=== PATIENT | male | born 1950 | race Two or more races ===

== ENCOUNTER 2016-10-23 10:59 | Outpatient (CLI) | payer MEDICARE | END 2016-10-23 23:59 | disposition home or self-care (01) | LOC: WOU 10:59 | PROVIDERS: ATTEND Surgery | DX: L89.154 Pressure ulcer of sacral region, stage 4 (principal); L89.314 Pressure ulcer of right buttock, stage 4; G82.21 Paraplegia, complete; Z93.3 Colostomy status; Z87.891 Personal history of nicotine dependence; Z88.0 Allergy status to penicillin | CPT/HCPCS: 11043; 11044; 11046; 11047; A6253; A6402 ==

== ENCOUNTER 2016-10-30 11:15 | Outpatient (CLI) | payer MEDICARE | END 2016-10-30 23:59 | disposition home or self-care (01) | LOC: WOU 11:15 | PROVIDERS: ATTEND Surgery | DX: L89.154 Pressure ulcer of sacral region, stage 4 (principal); L89.314 Pressure ulcer of right buttock, stage 4; G82.21 Paraplegia, complete; Z79.3 Long term (current) use of hormonal contraceptives; Z87.891 Personal history of nicotine dependence; Z88.0 Allergy status to penicillin; E46 Unspecified protein-calorie malnutrition; Z68.28 Body mass index [BMI] 28.0-28.9, adult | CPT/HCPCS: 11043; 11044; 11046; 11047; A6253; A6402 ×2 ==

== ENCOUNTER 2016-11-06 11:39 | Outpatient (CLI) | payer MEDICARE ==
[2016-11-06 13:03] LABS: NEUTROPHILS # (AUTO) 21.3 /CMM (1.8-8.9)
[2016-11-06 13:04] LABS: PREALBUMIN 8.4 MG/DL (18.0-35.7)
[2016-11-06 13:06] LABS: DIFF TOTAL % 100 %; EOSINOPHILS % (AUTO) 0.2 % (0.0-6.0); HEMATOCRIT 21 % (39-51); LYMPHOCYTES # (AUTO) 1.1 /CMM (0.8-4.8); LYMPHOCYTES % (AUTO) 4.8 % (20.0-44.0); MEAN CORPUSCULAR HEMOGLOBIN 22 PG (26.0-33.0); MEAN CORPUSCULAR HGB CONC 31 g/dl (31.0-36.0); MEAN CORPUSCULAR VOLUME 72 fL (80-96); MONOCYTES % (AUTO) 4.1 % (2.0-12.0); NEUTROPHILS % (AUTO) 90.9 % (43.0-81.0); PLATELET COUNT (AUTO) 533 /CMM (150-450); WHITE BLOOD COUNT (AUTO) 23.5 K/uL (4.3-11.0)
[2016-11-06 13:08] LABS: BILIRUBIN,TOTAL 0.2 mg/dL (0.2-1.0); CREATININE 0.8 mg/dL (0.6-1.3); POTASSIUM 4.2 mmol/L (3.5-5.1)
[2016-11-06 13:13] LABS: ALBUMIN 1.2 g/dL (3.4-5.0); HEMOGLOBIN 6.4 g/dL (13.5-17.5)
[2016-11-06 14:46] LABS: LYMPHOCYTES % (MANUAL) 4 % (16-48); PLATELET ESTIMATE INCREASED
[2016-11-06 14:47] LABS: ANISOCYTOSIS 3+; HYPOCHROMASIA 1+; MICROCYTOSIS 1+
[2016-11-06 17:06] LABS: KETONES,URINE TRACE (NEGATIVE); LEUKOCYTE ESTERASE ,URINE 3+ (NEGATIVE)
[2016-11-06 17:23] LABS: ADD UA MICROSCOPIC YES
[2016-11-06 17:32] LABS: ADD URINE CULTURE YES
== END 2016-11-06 23:59 | disposition home or self-care (01) ==
LOC: WOU 11:39
PROVIDERS: ATTEND Surgery
DX: L89.154 Pressure ulcer of sacral region, stage 4 (principal); L89.314 Pressure ulcer of right buttock, stage 4; Z87.891 Personal history of nicotine dependence; E46 Unspecified protein-calorie malnutrition; Z68.28 Body mass index [BMI] 28.0-28.9, adult; Z93.3 Colostomy status; R15.9 Full incontinence of feces; G82.21 Paraplegia, complete; I96 Gangrene, not elsewhere classified
CPT/HCPCS: 11043; 11044; 11046; 11047; 36415; 80053; 81001; 84134; 85025; 87077; 87086; 87186 ×2; A6253; A6402 ×2; 81000-TC

== ENCOUNTER 2016-11-13 11:41 | Outpatient (CLI) | payer MEDICARE | END 2016-11-13 23:59 | disposition home or self-care (01) | LOC: WOU 11:41 | PROVIDERS: ATTEND Surgery | DX: L89.154 Pressure ulcer of sacral region, stage 4 (principal); L89.314 Pressure ulcer of right buttock, stage 4; G82.21 Paraplegia, complete; Z93.3 Colostomy status; Z87.891 Personal history of nicotine dependence; E46 Unspecified protein-calorie malnutrition | CPT/HCPCS: 11043; 11044; 11046; 11047; A6253; A6402 ==

== ENCOUNTER 2016-11-27 11:36 | Outpatient (CLI) | payer MEDICARE | END 2016-11-27 23:59 | disposition home or self-care (01) | LOC: WOU 11:36 | PROVIDERS: ATTEND Surgery | DX: L89.154 Pressure ulcer of sacral region, stage 4 (principal); L89.314 Pressure ulcer of right buttock, stage 4; G82.21 Paraplegia, complete; Z93.3 Colostomy status; Z87.891 Personal history of nicotine dependence; Z88.0 Allergy status to penicillin; R15.9 Full incontinence of feces; E46 Unspecified protein-calorie malnutrition; Z68.28 Body mass index [BMI] 28.0-28.9, adult | CPT/HCPCS: 11043; 11044; 11046; 11047; A6253 ×2; A6402 ×2 ==

== ENCOUNTER 2016-12-04 11:30 | Outpatient (CLI) | payer MEDICARE | END 2016-12-04 23:59 | disposition home or self-care (01) | LOC: WOU 11:30 | PROVIDERS: ATTEND Surgery | DX: L89.154 Pressure ulcer of sacral region, stage 4 (principal); L89.314 Pressure ulcer of right buttock, stage 4; G82.21 Paraplegia, complete; Z93.3 Colostomy status; Z87.891 Personal history of nicotine dependence; Z88.0 Allergy status to penicillin; R15.9 Full incontinence of feces; E46 Unspecified protein-calorie malnutrition; Z68.28 Body mass index [BMI] 28.0-28.9, adult | CPT/HCPCS: 11043; 11044; 11046; 11047; A6253; A6402 ==

== ENCOUNTER 2016-12-11 11:27 | Outpatient (CLI) | payer MEDICARE | END 2016-12-11 23:59 | disposition home or self-care (01) | LOC: WOU 11:27 | PROVIDERS: ATTEND Surgery | DX: L89.154 Pressure ulcer of sacral region, stage 4 (principal); L89.314 Pressure ulcer of right buttock, stage 4; G82.21 Paraplegia, complete; Z93.3 Colostomy status; Z87.891 Personal history of nicotine dependence; Z88.0 Allergy status to penicillin; E46 Unspecified protein-calorie malnutrition; Z68.28 Body mass index [BMI] 28.0-28.9, adult | CPT/HCPCS: 11043; 11044; 11046; 11047; A6253; A6402 ×2 ==

== ENCOUNTER 2016-12-18 11:30 | Outpatient (CLI) | payer MEDICARE | END 2016-12-18 23:59 | disposition home or self-care (01) | LOC: WOU 11:30 | PROVIDERS: ATTEND Surgery | DX: L89.154 Pressure ulcer of sacral region, stage 4 (principal); L89.314 Pressure ulcer of right buttock, stage 4; G82.21 Paraplegia, complete; Z93.3 Colostomy status; E46 Unspecified protein-calorie malnutrition; Z87.891 Personal history of nicotine dependence | CPT/HCPCS: 11043; 11044; 11046; 11047; A6253; A6402 ==

== ENCOUNTER 2017-01-01 11:58 | Outpatient (CLI) | payer MEDICARE | END 2017-01-01 23:59 | disposition home or self-care (01) | LOC: WOU 11:58 | PROVIDERS: ATTEND Surgery | DX: L89.154 Pressure ulcer of sacral region, stage 4 (principal); L89.314 Pressure ulcer of right buttock, stage 4; G82.21 Paraplegia, complete; Z87.891 Personal history of nicotine dependence; Z93.3 Colostomy status; E46 Unspecified protein-calorie malnutrition; Z68.28 Body mass index [BMI] 28.0-28.9, adult | CPT/HCPCS: 11043; A6253; A6402 ==

== ENCOUNTER 2017-01-15 12:48 | Outpatient (CLI) | payer MEDICARE | END 2017-01-15 23:59 | disposition home or self-care (01) | LOC: WOU 12:48 | PROVIDERS: ATTEND Surgery | DX: L89.154 Pressure ulcer of sacral region, stage 4 (principal); L89.314 Pressure ulcer of right buttock, stage 4; G82.21 Paraplegia, complete; E46 Unspecified protein-calorie malnutrition; Z68.28 Body mass index [BMI] 28.0-28.9, adult; Z93.3 Colostomy status; Z87.891 Personal history of nicotine dependence | CPT/HCPCS: 11043; 11044; 11046; 11047; A6253; A6402 ==

== ENCOUNTER 2017-01-22 12:55 | Outpatient (CLI) | payer MEDICARE | END 2017-01-22 23:59 | disposition home or self-care (01) | LOC: WOU 12:55 | PROVIDERS: ATTEND Surgery | DX: L89.154 Pressure ulcer of sacral region, stage 4 (principal); L89.314 Pressure ulcer of right buttock, stage 4; G82.21 Paraplegia, complete; E46 Unspecified protein-calorie malnutrition; Z68.28 Body mass index [BMI] 28.0-28.9, adult; Z99.3 Dependence on wheelchair; Z93.3 Colostomy status; Z87.891 Personal history of nicotine dependence | CPT/HCPCS: 11043; 11044; 11046; 11047; A6253 ×2; A6402 ==

== ENCOUNTER 2017-01-29 11:16 | Outpatient (CLI) | payer MEDICARE | END 2017-01-29 23:59 | disposition home or self-care (01) | LOC: WOU 11:16 | PROVIDERS: ATTEND Surgery | DX: L89.154 Pressure ulcer of sacral region, stage 4 (principal); L89.314 Pressure ulcer of right buttock, stage 4; G82.21 Paraplegia, complete; Z93.3 Colostomy status; Z87.891 Personal history of nicotine dependence; Z88.0 Allergy status to penicillin; E46 Unspecified protein-calorie malnutrition; Z68.28 Body mass index [BMI] 28.0-28.9, adult | CPT/HCPCS: 11043; 11044; 11047; A6253; A6402 ==

== ENCOUNTER 2017-02-05 11:10 | Outpatient (CLI) | payer MEDICARE | END 2017-02-05 23:59 | disposition home or self-care (01) | LOC: WOU 11:10 | PROVIDERS: ATTEND Surgery | DX: L89.154 Pressure ulcer of sacral region, stage 4 (principal); L89.314 Pressure ulcer of right buttock, stage 4; G82.20 Paraplegia, unspecified; Z93.3 Colostomy status; Z87.891 Personal history of nicotine dependence | CPT/HCPCS: 11043; 11044; 11046; 11047; A6253; A6402 ==

== ENCOUNTER 2017-02-12 11:15 | Outpatient (CLI) | payer MEDICARE | END 2017-02-12 23:59 | disposition home or self-care (01) | LOC: WOU 11:15 | PROVIDERS: ATTEND Surgery | DX: L89.154 Pressure ulcer of sacral region, stage 4 (principal); L89.314 Pressure ulcer of right buttock, stage 4; G82.21 Paraplegia, complete; Z93.3 Colostomy status; Z87.891 Personal history of nicotine dependence; E46 Unspecified protein-calorie malnutrition; Z68.28 Body mass index [BMI] 28.0-28.9, adult | CPT/HCPCS: 11043; 11046; A6253; A6402 ==

== ENCOUNTER 2017-02-26 13:25 | Outpatient (CLI) | payer MEDICARE | END 2017-02-26 23:59 | disposition home or self-care (01) | LOC: WOU 13:25 | PROVIDERS: ATTEND Surgery | DX: L89.154 Pressure ulcer of sacral region, stage 4 (principal); L89.314 Pressure ulcer of right buttock, stage 4; G82.21 Paraplegia, complete; Z93.3 Colostomy status; Z87.891 Personal history of nicotine dependence; E46 Unspecified protein-calorie malnutrition; Z68.28 Body mass index [BMI] 28.0-28.9, adult; Z99.3 Dependence on wheelchair | CPT/HCPCS: 11043; 11046; A6253; A6402 ==

== ENCOUNTER 2017-03-05 12:28 | Outpatient (CLI) | payer MEDICARE | END 2017-03-05 23:59 | disposition home or self-care (01) | LOC: WOU 12:28 | PROVIDERS: ATTEND Surgery | DX: L89.154 Pressure ulcer of sacral region, stage 4 (principal); L89.314 Pressure ulcer of right buttock, stage 4; G82.21 Paraplegia, complete; Z93.3 Colostomy status; Z87.891 Personal history of nicotine dependence | CPT/HCPCS: 11043; 11046; A6253; A6402 ==

== ENCOUNTER 2017-03-19 12:50 | Outpatient (CLI) | payer MEDICARE | END 2017-03-19 23:59 | disposition home or self-care (01) | LOC: WOU 12:50 | PROVIDERS: ATTEND Surgery | DX: L89.154 Pressure ulcer of sacral region, stage 4 (principal); L89.314 Pressure ulcer of right buttock, stage 4; G82.21 Paraplegia, complete; Z93.3 Colostomy status; Z87.891 Personal history of nicotine dependence | CPT/HCPCS: 11043; 11046; A6253; A6402 ==

== ENCOUNTER 2017-03-26 13:00 | Outpatient (CLI) | payer MEDICARE | END 2017-03-26 23:59 | disposition home or self-care (01) | LOC: WOU 13:00 | PROVIDERS: ATTEND Surgery | DX: L89.154 Pressure ulcer of sacral region, stage 4 (principal); L89.314 Pressure ulcer of right buttock, stage 4; G82.21 Paraplegia, complete; Z93.3 Colostomy status; Z87.891 Personal history of nicotine dependence; Z88.0 Allergy status to penicillin; E46 Unspecified protein-calorie malnutrition; Z68.28 Body mass index [BMI] 28.0-28.9, adult | CPT/HCPCS: 11043; A6253; A6402 ==

== ENCOUNTER 2017-04-02 11:30 | Outpatient (CLI) | payer MEDICARE | END 2017-04-02 23:59 | disposition home or self-care (01) | LOC: WOU 11:30 | PROVIDERS: ATTEND Surgery | DX: L89.154 Pressure ulcer of sacral region, stage 4 (principal); L89.314 Pressure ulcer of right buttock, stage 4; G82.21 Paraplegia, complete; Z93.3 Colostomy status; Z87.891 Personal history of nicotine dependence; Z88.0 Allergy status to penicillin; E46 Unspecified protein-calorie malnutrition; Z68.28 Body mass index [BMI] 28.0-28.9, adult; R15.9 Full incontinence of feces | CPT/HCPCS: 11043; 11046; A6253; A6402 ==

== ENCOUNTER 2017-04-09 11:45 | Outpatient (CLI) | payer MEDICARE | END 2017-04-09 23:59 | disposition home or self-care (01) | LOC: WOU 11:45 | PROVIDERS: ATTEND Surgery | DX: L89.154 Pressure ulcer of sacral region, stage 4 (principal); L89.314 Pressure ulcer of right buttock, stage 4; G82.21 Paraplegia, complete; Z93.3 Colostomy status; Z87.891 Personal history of nicotine dependence; Z88.0 Allergy status to penicillin; E46 Unspecified protein-calorie malnutrition; Z68.28 Body mass index [BMI] 28.0-28.9, adult | CPT/HCPCS: 11043; A6253; A6402 ==

== ENCOUNTER 2017-04-23 13:32 | Outpatient (CLI) | payer MEDICARE | END 2017-04-23 23:59 | disposition home or self-care (01) | LOC: WOU 13:32 | PROVIDERS: ATTEND Surgery | DX: L89.314 Pressure ulcer of right buttock, stage 4 (principal); L89.154 Pressure ulcer of sacral region, stage 4; Z93.3 Colostomy status; Z87.891 Personal history of nicotine dependence; Z88.0 Allergy status to penicillin; E46 Unspecified protein-calorie malnutrition; Z68.28 Body mass index [BMI] 28.0-28.9, adult; G82.20 Paraplegia, unspecified; G82.21 Paraplegia, complete | CPT/HCPCS: 11043; A6253; A6402 ==

== ENCOUNTER 2017-04-30 11:05 | Outpatient (CLI) | payer MEDICARE | END 2017-04-30 23:59 | disposition home or self-care (01) | LOC: WOU 11:05 | PROVIDERS: ATTEND Surgery | DX: L89.154 Pressure ulcer of sacral region, stage 4 (principal); L89.314 Pressure ulcer of right buttock, stage 4; G82.21 Paraplegia, complete; Z99.3 Dependence on wheelchair; Z93.3 Colostomy status; Z87.891 Personal history of nicotine dependence; E46 Unspecified protein-calorie malnutrition; Z68.28 Body mass index [BMI] 28.0-28.9, adult | CPT/HCPCS: 11043; A6253; A6402 ==

== ENCOUNTER 2017-05-07 11:15 | Outpatient (CLI) | payer MEDICARE | END 2017-05-07 23:59 | disposition home or self-care (01) | LOC: WOU 11:15 | PROVIDERS: ATTEND Surgery | DX: L89.154 Pressure ulcer of sacral region, stage 4 (principal); L89.314 Pressure ulcer of right buttock, stage 4; G82.21 Paraplegia, complete; Z93.3 Colostomy status; R15.9 Full incontinence of feces; Z87.891 Personal history of nicotine dependence; Z99.3 Dependence on wheelchair; Z88.0 Allergy status to penicillin | CPT/HCPCS: 11043; 11046; A6253; A6402 ×2 ==

== ENCOUNTER 2017-05-14 11:10 | Outpatient (CLI) | payer MEDICARE | END 2017-05-14 23:59 | disposition home or self-care (01) | LOC: WOU 11:10 | PROVIDERS: ATTEND Surgery | DX: L89.154 Pressure ulcer of sacral region, stage 4 (principal); L89.314 Pressure ulcer of right buttock, stage 4; G82.21 Paraplegia, complete; Z93.3 Colostomy status; R15.9 Full incontinence of feces; Z87.891 Personal history of nicotine dependence; Z99.3 Dependence on wheelchair; Z88.0 Allergy status to penicillin; E46 Unspecified protein-calorie malnutrition; Z68.28 Body mass index [BMI] 28.0-28.9, adult | CPT/HCPCS: 11043; A6253; A6402 ==

== ENCOUNTER 2017-05-28 11:12 | Outpatient (CLI) | payer MEDICARE | END 2017-05-28 23:59 | disposition home or self-care (01) | LOC: WOU 11:12 | PROVIDERS: ATTEND Surgery | DX: L89.154 Pressure ulcer of sacral region, stage 4 (principal); L89.314 Pressure ulcer of right buttock, stage 4; G82.21 Paraplegia, complete; Z93.3 Colostomy status; R15.9 Full incontinence of feces; Z87.891 Personal history of nicotine dependence; Z99.3 Dependence on wheelchair; Z88.0 Allergy status to penicillin; E46 Unspecified protein-calorie malnutrition; Z68.28 Body mass index [BMI] 28.0-28.9, adult | CPT/HCPCS: 11043; A6253; A6402 ==

== ENCOUNTER 2017-06-04 12:23 | Outpatient (CLI) | payer MEDICARE | END 2017-06-04 23:59 | disposition home or self-care (01) | LOC: WOU 12:23 | PROVIDERS: ATTEND Surgery | DX: L89.154 Pressure ulcer of sacral region, stage 4 (principal); L89.314 Pressure ulcer of right buttock, stage 4; G82.21 Paraplegia, complete; Z93.3 Colostomy status; R15.9 Full incontinence of feces; Z87.891 Personal history of nicotine dependence; Z99.3 Dependence on wheelchair; Z88.0 Allergy status to penicillin; E46 Unspecified protein-calorie malnutrition; Z68.28 Body mass index [BMI] 28.0-28.9, adult | CPT/HCPCS: 11043; 11046; A6253; A6402 ==

== ENCOUNTER 2017-06-11 13:10 | Outpatient (CLI) | payer MEDICARE | END 2017-06-11 23:59 | disposition home or self-care (01) | LOC: WOU 13:10 | PROVIDERS: ATTEND Surgery | DX: L89.154 Pressure ulcer of sacral region, stage 4 (principal); L89.314 Pressure ulcer of right buttock, stage 4; G82.21 Paraplegia, complete; Z93.3 Colostomy status; R15.9 Full incontinence of feces; Z87.891 Personal history of nicotine dependence; Z99.3 Dependence on wheelchair; Z88.0 Allergy status to penicillin; E46 Unspecified protein-calorie malnutrition; Z68.28 Body mass index [BMI] 28.0-28.9, adult; Z87.440 Personal history of urinary (tract) infections | CPT/HCPCS: 11043; 11046; A6253; A6402 ==

== ENCOUNTER 2017-07-02 12:50 | Outpatient (CLI) | payer MEDICARE ==
[2017-07-02 14:46] LABS: BASOPHILS % (AUTO) 0.2 % (0.0-2.0); EOSINOPHILS # (AUTO) 0.1 /CMM (0.0-0.7); EOSINOPHILS % (AUTO) 0.4 % (0.0-6.0); HEMATOCRIT 27 % (39-51); HEMOGLOBIN 8.1 g/dL (13.5-17.5); LYMPHOCYTES % (AUTO) 6.8 % (20.0-44.0); MEAN CORPUSCULAR HEMOGLOBIN 22 PG (26.0-33.0); MEAN CORPUSCULAR HGB CONC 30 g/dl (31.0-36.0); MEAN CORPUSCULAR VOLUME 74 fL (80-96); MONOCYTES # (AUTO) 0.8 /CMM (0.1-1.30); MONOCYTES % (AUTO) 5.7 % (2.0-12.0); NEUTROPHILS # (AUTO) 12.6 /CMM (1.8-8.9); NEUTROPHILS % (AUTO) 86.9 % (43.0-81.0); PLATELET COUNT (AUTO) 743 /CMM (150-450); RDW COEFFICIENT OF VARIATION 21.8 (11.5-15.0); RED BLOOD CELL COUNT(AUTO) 3.61 MIL/uL (4.5-6.0); WHITE BLOOD COUNT (AUTO) 14.5 K/uL (4.3-11.0)
[2017-07-02 14:48] LABS: CALCIUM, SERUM 8.8 mg/dL (8.5-10.1); CREATININE 0.9 mg/dL (0.6-1.3); POTASSIUM 4.1 mmol/L (3.5-5.1)
== END 2017-07-02 23:59 | disposition home or self-care (01) ==
LOC: WOU 12:50
PROVIDERS: ATTEND Surgery
DX: L89.154 Pressure ulcer of sacral region, stage 4 (principal); L89.314 Pressure ulcer of right buttock, stage 4; G82.21 Paraplegia, complete; Z93.3 Colostomy status; Z87.891 Personal history of nicotine dependence; R15.9 Full incontinence of feces; Z88.0 Allergy status to penicillin; E46 Unspecified protein-calorie malnutrition; Z68.28 Body mass index [BMI] 28.0-28.9, adult
CPT/HCPCS: 11043; 11046; 36415; 80048; 85025; A6253; A6402

== ENCOUNTER 2017-07-23 12:46 | Outpatient (CLI) | payer MEDICARE | END 2017-07-23 23:59 | disposition home or self-care (01) | LOC: WOU 12:46 | PROVIDERS: ATTEND Surgery | DX: L89.154 Pressure ulcer of sacral region, stage 4 (principal); L89.314 Pressure ulcer of right buttock, stage 4; G82.21 Paraplegia, complete; Z93.3 Colostomy status; Z87.891 Personal history of nicotine dependence; R15.9 Full incontinence of feces; Z88.0 Allergy status to penicillin; E46 Unspecified protein-calorie malnutrition; Z68.28 Body mass index [BMI] 28.0-28.9, adult | CPT/HCPCS: 11043; 11046; A6253; A6402 ==

== ENCOUNTER 2017-08-06 12:41 | Outpatient (CLI) | payer MEDICARE | END 2017-08-06 23:59 | disposition home or self-care (01) | LOC: WOU 12:41 | PROVIDERS: ATTEND Surgery | DX: L89.154 Pressure ulcer of sacral region, stage 4 (principal); L89.314 Pressure ulcer of right buttock, stage 4; G82.21 Paraplegia, complete; Z93.3 Colostomy status; Z87.891 Personal history of nicotine dependence; R15.9 Full incontinence of feces; Z88.0 Allergy status to penicillin; E46 Unspecified protein-calorie malnutrition; Z68.28 Body mass index [BMI] 28.0-28.9, adult | CPT/HCPCS: 11043; 11046 ×2; A6253; A6402 ==

== ENCOUNTER 2017-08-13 12:43 | Outpatient (CLI) | payer MEDICARE | END 2017-08-13 23:59 | disposition home or self-care (01) | LOC: WOU 12:43 | PROVIDERS: ATTEND Surgery | DX: L89.154 Pressure ulcer of sacral region, stage 4 (principal); L89.314 Pressure ulcer of right buttock, stage 4; G82.21 Paraplegia, complete; Z93.3 Colostomy status; Z87.891 Personal history of nicotine dependence; E46 Unspecified protein-calorie malnutrition; Z68.28 Body mass index [BMI] 28.0-28.9, adult | CPT/HCPCS: 11043; 11046; A6253; A6402 ==

== ENCOUNTER 2017-08-27 12:50 | Outpatient (CLI) | payer MEDICARE | END 2017-08-27 23:59 | disposition home or self-care (01) | LOC: WOU 12:50 | PROVIDERS: ATTEND Surgery | DX: L89.154 Pressure ulcer of sacral region, stage 4 (principal); L89.314 Pressure ulcer of right buttock, stage 4; G82.21 Paraplegia, complete; Z93.3 Colostomy status; Z87.891 Personal history of nicotine dependence; E46 Unspecified protein-calorie malnutrition; Z68.28 Body mass index [BMI] 28.0-28.9, adult; Z99.3 Dependence on wheelchair | CPT/HCPCS: 11043; A6253; A6402 ==

== ENCOUNTER 2017-09-03 12:27 | Outpatient (CLI) | payer MEDICARE | END 2017-09-03 23:59 | disposition home or self-care (01) | LOC: WOU 12:27 | PROVIDERS: ATTEND Surgery | DX: L89.154 Pressure ulcer of sacral region, stage 4 (principal); L89.314 Pressure ulcer of right buttock, stage 4; G82.21 Paraplegia, complete; Z93.3 Colostomy status; Z87.891 Personal history of nicotine dependence; E46 Unspecified protein-calorie malnutrition; Z68.28 Body mass index [BMI] 28.0-28.9, adult | CPT/HCPCS: 11043; 11046; A6253; A6402 ×2 ==

== ENCOUNTER 2017-10-22 12:02 | Outpatient (CLI) | payer MEDICARE | END 2017-10-22 23:59 | disposition home or self-care (01) | LOC: WOU 12:02 | PROVIDERS: ATTEND Surgery | DX: L89.154 Pressure ulcer of sacral region, stage 4 (principal); L89.314 Pressure ulcer of right buttock, stage 4; E46 Unspecified protein-calorie malnutrition; Z68.28 Body mass index [BMI] 28.0-28.9, adult; Z93.3 Colostomy status; Z87.891 Personal history of nicotine dependence; G82.20 Paraplegia, unspecified | CPT/HCPCS: 11043; A6253; A6402 ==

== ENCOUNTER 2017-10-29 11:04 | Outpatient (CLI) | payer MEDICARE | END 2017-10-29 23:59 | disposition home or self-care (01) | LOC: WOU 11:04 | PROVIDERS: ATTEND Surgery | DX: L89.154 Pressure ulcer of sacral region, stage 4 (principal); L89.324 Pressure ulcer of left buttock, stage 4; G82.21 Paraplegia, complete; E43 Unspecified severe protein-calorie malnutrition; Z93.3 Colostomy status; Z87.891 Personal history of nicotine dependence | CPT/HCPCS: 11043; 11046; A6253; A6402 ==

== ENCOUNTER 2017-11-05 11:50 | Outpatient (CLI) | payer MEDICARE | END 2017-11-05 23:59 | disposition home or self-care (01) | LOC: WOU 11:50 | PROVIDERS: ATTEND Surgery | DX: L89.154 Pressure ulcer of sacral region, stage 4 (principal); L89.324 Pressure ulcer of left buttock, stage 4; G82.21 Paraplegia, complete; Z88.0 Allergy status to penicillin; Z93.3 Colostomy status; E43 Unspecified severe protein-calorie malnutrition | CPT/HCPCS: 11043; A6253; A6402 ==

== ENCOUNTER 2017-11-19 12:10 | Outpatient (CLI) | payer MEDICARE | END 2017-11-19 23:59 | disposition home or self-care (01) | LOC: WOU 12:10 | PROVIDERS: ATTEND Surgery | DX: L89.154 Pressure ulcer of sacral region, stage 4 (principal); L89.324 Pressure ulcer of left buttock, stage 4; E43 Unspecified severe protein-calorie malnutrition; G82.21 Paraplegia, complete; Z93.3 Colostomy status; Z87.891 Personal history of nicotine dependence | CPT/HCPCS: 11043; 11046; A6253 ×2 ==

== ENCOUNTER 2018-05-16 12:55 | Outpatient (CLI) | payer MEDICARE | END 2018-05-16 23:59 | disposition home or self-care (01) | LOC: WOU 12:55 | PROVIDERS: ATTEND Surgery | DX: L89.154 Pressure ulcer of sacral region, stage 4 (principal); L89.314 Pressure ulcer of right buttock, stage 4; Z93.3 Colostomy status; Z87.891 Personal history of nicotine dependence; Z88.0 Allergy status to penicillin; G82.20 Paraplegia, unspecified | CPT/HCPCS: 11043; 11044; 11047; 97606; A6402; Z7610 ==

== ENCOUNTER 2018-05-23 12:40 | Outpatient (CLI) | payer MEDICARE | END 2018-05-23 23:59 | disposition home or self-care (01) | LOC: WOU 12:40 | PROVIDERS: ATTEND Surgery | DX: L89.154 Pressure ulcer of sacral region, stage 4 (principal); L89.314 Pressure ulcer of right buttock, stage 4; Z93.3 Colostomy status; Z87.891 Personal history of nicotine dependence; Z88.0 Allergy status to penicillin; G82.20 Paraplegia, unspecified | CPT/HCPCS: 11044; 11047; 97606; A6402 ×2; Z7610; 97605-TC ==

== ENCOUNTER 2018-05-30 12:43 | Outpatient (CLI) | payer MEDICARE | END 2018-05-30 23:59 | disposition home or self-care (01) | LOC: WOU 12:43 | PROVIDERS: ATTEND Surgery | DX: L89.154 Pressure ulcer of sacral region, stage 4 (principal); L89.314 Pressure ulcer of right buttock, stage 4; G82.20 Paraplegia, unspecified; Z93.3 Colostomy status; Z87.891 Personal history of nicotine dependence | CPT/HCPCS: 11043; 97606-TC; A6402; Z7610 ==

== ENCOUNTER 2018-06-06 13:52 | Outpatient (CLI) | payer MEDICARE | END 2018-06-06 23:59 | disposition home or self-care (01) | LOC: WOU 13:52 | PROVIDERS: ATTEND Surgery | DX: L89.154 Pressure ulcer of sacral region, stage 4 (principal); L89.314 Pressure ulcer of right buttock, stage 4; Z88.0 Allergy status to penicillin; G82.20 Paraplegia, unspecified; E46 Unspecified protein-calorie malnutrition; Z68.22 Body mass index [BMI] 22.0-22.9, adult | CPT/HCPCS: 11043; 11044; 11047; 97606-TC; A6402; Z7610 ==

== ENCOUNTER 2018-06-13 12:47 | Outpatient (CLI) | payer MEDICARE | END 2018-06-13 23:59 | disposition home or self-care (01) | LOC: WOU 12:47 | PROVIDERS: ATTEND Surgery | DX: L89.314 Pressure ulcer of right buttock, stage 4 (principal); L89.154 Pressure ulcer of sacral region, stage 4; G82.20 Paraplegia, unspecified | CPT/HCPCS: 11043; 11044; 11047; 97606-TC; A6402; Z7610 ==

== ENCOUNTER 2018-06-27 12:56 | Outpatient (CLI) | payer MEDICARE | END 2018-06-27 23:59 | disposition home or self-care (01) | LOC: WOU 12:56 | PROVIDERS: ATTEND Podiatrist Foot & Ankle Surgery | DX: L89.154 Pressure ulcer of sacral region, stage 4 (principal); L89.314 Pressure ulcer of right buttock, stage 4; Z88.0 Allergy status to penicillin; G82.20 Paraplegia, unspecified; Z99.3 Dependence on wheelchair; E46 Unspecified protein-calorie malnutrition; Z68.22 Body mass index [BMI] 22.0-22.9, adult | CPT/HCPCS: 11043; 11044; 11047; 97606; A6402; Z7610 ==